=== PATIENT | female | born 1980 | race Caucasian/White ===

== ENCOUNTER 2017-09-15 22:41 | Emergency (ER) | payer SELFPAY ==
[2017-09-15] MEDS ORDERED: Ibuprofen 600 MG TAB ONE (23:29)
[2017-09-15] MEDS ORDERED: HYDROcodone/Acetaminophen 10/325 mg Tablet ONE (23:29)
[2017-09-15] MEDS ORDERED: predniSONE 20 MG TAB ONE (23:29)
--- NOTE | 2017-09-15 23:55 | RAD ---
PORTABLE CHEST: HISTORY: Chest pain. FINDINGS: Heart size and mediastinum are within normal limits. Lungs are clear of infiltrates. No significant bony findings. IMPRESSION: No active intrathoracic disease. POS: [facility]
== END 2017-09-15 23:41 | disposition home or self-care (01) ==
LOC: MADERS 22:41
DX: R07.1 Chest pain on breathing (principal); F17.210 Nicotine dependence, cigarettes, uncomplicated; Z79.51 Long term (current) use of inhaled steroids; Z79.899 Other long term (current) drug therapy
CPT/HCPCS: 71045; J7506